=== PATIENT | male | born 1940 ===

== ENCOUNTER 2024-07-08 14:50 | Outpatient (CLI) | payer SELFPAY ==
--- NOTE | 2024-07-08 11:51 | DI.RAD_ITS ---
Exam(s) XR WRIST RT COMPLETE EXAM: XR WRIST RT COMPLETE CLINICAL HISTORY: PAIN, R/O FRACTURE OR BREAK. TECHNIQUE: 2D digital imaging was performed of the right wrist. Three views were obtained. Scaphoid , PA, lateral and oblique views were obtained. COMPARISON: No exams were available for comparison FINDINGS: BONES: No acute fracture is present. No bony destructive lesion is seen. JOINTS: The carpal bones are normally aligned. Mild degenerative changes are seen in the wrist. SOFT TISSUE: There is chondrocalcinosis of the TFCC. Extensive vascular calcification is present. IMPRESSION: No definite acute fracture or dislocation is identified. If symptoms persist, a follow-up examinatio n in 7-10 days is recommended. DATA REPOSITORY: RADIATION DOSE DELIVERED:
== END 2024-07-08 15:10 ==
LOC: DI 14:54
PROVIDERS: Visit Provider Naturopath
DX: M25.531 Pain in right wrist (principal)
CPT/HCPCS: 73110